=== PATIENT | female | born 1965 | race Caucasian/White ===

== ENCOUNTER 2024-06-05 22:18 | Emergency (ER) | payer BC ==
[~2024-06-05] VITALS: Ht 160 cm; Wt 115.7 kg
[~2024-06-05 22:18] MED LIST: ATECHL PO; ATEN50 PO; CYCL10 PO; FOLI1; HYDACE5 PO; IBUP600; NAPR500 PO; PHENY100ER; PHENY100ER PO; RXCYCL10 PO; RXHYDACE PO; TOPI15C; ZOLM2.5; [UNRECOGNIZED DRUG - REMARK]
[2024-06-05] MEDS ORDERED: FLUOXETINE HCL20 M2 PO (22:49)
[2024-06-05] MEDS ORDERED: LOSA50 PO (22:49)
[2024-06-05] MEDS ORDERED: ZOLMITRIPTAN ODT5 MG PO (22:50)
[2024-06-05] MEDS ORDERED: Cephalexin Monohydrate 500 MG Cap PO ONE (23:00)
[2024-06-06] MEDS ORDERED: CEPH500 PO (01:53)
[2024-06-06 02:06] VITALS: BP 148/47
== END 2024-06-06 02:07 | disposition home or self-care (01) ==
LOC: ER 22:18
DX: L03.116 Cellulitis of left lower limb (principal); I10 Essential (primary) hypertension; Z79.899 Other long term (current) drug therapy; Z87.891 Personal history of nicotine dependence
CPT/HCPCS: 93971; 99283-25; A9270